=== PATIENT | male | born 2000 ===

== ENCOUNTER 2021-05-21 15:40 | Emergency (ER) | payer SELFPAY ==
[~2021-05-21] VITALS: Ht 177.8 cm; Wt 68.2 kg
[2021-05-21 15:48] VITALS: Ht 177.8 cm; Wt 68.2 kg
[2021-05-21 18:49] VITALS: BP 146/91
[2021-05-21] MEDS ORDERED: CHLORHEXIDINE473 M1 PO (19:56)
[2021-05-21] MEDS ORDERED: AUGMENTIN 875-11 TAB PO (19:56)
[2021-05-21] MEDS ORDERED: NAPROSYN500 MG PO (19:56)
== END 2021-05-21 20:15 | disposition home or self-care (01) ==
LOC: D.ER 15:40
DX: S09.90XA Unspecified injury of head, initial encounter (principal); S00.83XA Contusion of other part of head, initial encounter; S01.81XA Laceration without foreign body of other part of head, initial encounter; S01.512A Laceration without foreign body of oral cavity, initial encounter